=== PATIENT | female | born 1960 | race Caucasian/White ===

== ENCOUNTER 2023-11-17 10:52 | Emergency (ER) | payer OTHER ==
[2023-11-17] MEDS ORDERED: Lidocaine 1% PF 5 ML VIAL ONE (11:05)
[2023-11-17] MEDS ORDERED: Ibuprofen 200 MG TAB ONE (12:11)
== END 2023-11-17 12:32 | disposition home or self-care (01) ==
LOC: BURERS 10:52
DX: S62.522B Displaced fracture of distal phalanx of left thumb, initial encounter for open fracture (principal); F17.210 Nicotine dependence, cigarettes, uncomplicated; W20.8XXA Other cause of strike by thrown, projected or falling object, initial encounter; Y93.H2 Activity, gardening and landscaping; Y99.0 Civilian activity done for income or pay
CPT/HCPCS: 12001; 99283